=== PATIENT | male | born 1955 | race Caucasian/White ===

== ENCOUNTER 2020-10-11 06:06 | Day surgery (SDC) | payer MEDICARE, BC ==
[2020-10-11] MEDS ORDERED: Midazolam 1 MG/ML 2 ML SDV ONE (06:57)
[2020-10-11] MEDS ORDERED: fentaNYL 100 MCG/2 ML SDV ONE (06:57)
[2020-10-11] MEDS ORDERED: Propofol 200 MG/20 ML SDV ONE (06:57)
[2020-10-11] MEDS ORDERED: Sodium Chloride 0.9% 1,000 ML IV SCH (07:00)
--- NOTE | 2020-10-11 10:41 | PROC ---
DATE OF PROCEDURE: SURGEON: Rusty Rebollar MD INDICATIONS: This is a 65-year-old male, who comes in because of abdominal pain on the right side of the abdomen. The risks and benefits were explained to have a colonoscopy and was taken to the OR. PROCEDURE: Colonoscopy. PROCEDURE IN DETAIL: Anesthesia was given by nurse cylinder checker during procedure, used 2 mg of Versed, 100 mcg of fentanyl, and 200 mg of propofol. The Olympus 180L scope was used, was placed into the rectum and advanced under direct vision. Upon entering the transverse colon, revealed multiple polyps throughout the entire area all the way to the cecum. At cecum, pouch was unremarkable. Came right back again from the cecum noted significant erythema of the mucosa, which was evident up to the mid ascending colon. Biopsies were done of this. Came back into the transverse colon revealed multiple polyps. These were biopsied. The descending colon revealed a lesser amount of polyps. Right inside the rectum revealed what appeared to be a polyp. This was biopsied. The tube was removed. The patient tolerated the procedure well. PREOPERATIVE DIAGNOSIS: Abdominal pain on the right side of the abdomen. POSTOPERATIVE DIAGNOSIS: Multiple polyps throughout the transverse and ascending colon with an area of significant mucosal erythema just proximal to the cecum consistence as colitis. Biopsies were pending, polyps as well as the irritation of the colon area. This gentleman will need frequent colonoscopies depending on the results of the biopsies. Rusty Rebollar MD /[id number] MTDD
== END 2020-10-11 08:49 | disposition home or self-care (01) ==
LOC: JP.SDS 06:06
PROVIDERS: ATTEND Internal Medicine
DX: K63.89 Other specified diseases of intestine (principal); K62.89 Other specified diseases of anus and rectum; I10 Essential (primary) hypertension; E78.5 Hyperlipidemia, unspecified; E66.9 Obesity, unspecified; Z68.38 Body mass index [BMI] 38.0-38.9, adult
CPT/HCPCS: 45380; J2250; J2704; J3010; J7030

== ENCOUNTER 2023-04-09 00:06 | Emergency (ER) | payer MEDICARE, BC ==
[2023-04-09] MEDS ORDERED: Sodium Chloride 0.9% 10 ML Syringe FLUSH PRN (00:48)
[2023-04-09] MEDS ORDERED: Sodium Chloride 0.9% 1,000 ML IV STA (00:48)
[2023-04-09 00:54] LABS: BASOPHILS ABSOLUTE AUTO 0.06 K/uL (0.00-0.10); BASOPHILS PERCENT AUTO 0.5 % (0.1-1.3); EOSINOPHILS ABSOLUTE AUTO 0.75 K/uL (0.00-0.40); EOSINOPHILS PERCENT AUTO 6.6 % (0.0-5.4); HEMATOCRIT 36.4 % (38.4-49.7); HEMOGLOBIN 12.3 g/dL (12.9-16.9); IMMATURE GRAN ABSOLUTE AUTO 0.07 K/uL (0.00-0.23); IMMATURE GRAN PERCENT AUTO 0.6 % (0.0-0.7); LYMPHOCYTES ABSOLUTE AUTO 1.27 K/uL (0.8-3.3); LYMPHOCYTES PERCENT AUTO 11.2 % (11.4-47.7); MEAN CORPUSCULAR HEMOGLOBIN 29.6 pg (31.6-35.5); MEAN CORPUSCULAR HGB CONC 33.8 g/dL (31.6-35.5); MEAN CORPUSCULAR VOLUME 87.7 fL (81.4-99.0); MONOCYTES ABSOLUTE AUTO 0.84 K/uL (0.20-0.90); MONOCYTES PERCENT AUTO 7.4 % (3.3-12.6); NEUTROPHILS ABSOLUTE AUTO 8.39 K/uL (1.0-7.6); NEUTROPHILS PERCENT AUTO 73.7 % (40.0-78.1); PLATELET COUNT,PLT 193 K/uL (130-375); RED BLOOD CELL COUNT 4.15 M/uL (4.14-5.76); WHITE BLOOD CELL COUNT,WBC 11.4 K/uL (3.2-11.0)
[2023-04-09] MEDS ORDERED: Iopamidol 612 MG/ML 100 ML Bottle IV STA (01:00)
[2023-04-09] MEDS ORDERED: Sodium Chloride 0.9% 50 ML IV STA (01:01)
[2023-04-09] MEDS ORDERED: Sodium Chloride 0.9% 10 ML Syringe FLUSH STA (01:01)
[2023-04-09 01:11] LABS: A/G RATIO 0.9 (1.2-2.2); ALANINE AMINOTRANSFERASE,ALT 27 U/L (12-78); ALBUMIN 3.1 g/dL (3.4-5.0); ALKALINE PHOSPHATASE 98 U/L (46-116); ASPARTATE AMNIOTRANSFERASE,AST 16 U/L (15-37); BILIRUBIN TOTAL 0.4 mg/dL (0.2-1.0); BLOOD UREA NITROGEN,BUN 14 mg/dL (7-18); CALCIUM 8.2 mg/dL (8.5-10.1); CARBON DIOXIDE,CO2 26 mmol/L (21-32); CHLORIDE,CL 102 mmol/L (100-108); CREATININE 1.1 mg/dL (0.8-1.3); EST CRCL DRUG DOSING (CG) 72.64 mL/min; ESTIMATED GFR 73 mL/min (>60); GLUCOSE RANDOM 122 mg/dL (74-106); POTASSIUM,K 3.6 mmol/L (3.6-5.2); PROTEIN TOTAL,TP 6.6 g/dL (6.4-8.2); SODIUM,NA 137 mmol/L (140-148)
[2023-04-09 01:24] LABS: ANION GAP 12.6 mmol/L (5.0-14.0)
== END 2023-04-09 03:42 | disposition home or self-care (01) ==
LOC: JP.ED 00:06
DX: K52.9 Noninfective gastroenteritis and colitis, unspecified (principal); I10 Essential (primary) hypertension; E66.9 Obesity, unspecified; Z91.013 Allergy to seafood; Z79.899 Other long term (current) drug therapy; Z68.41 Body mass index [BMI] 40.0-44.9, adult
CPT/HCPCS: 36415; 74177; 80053; 83605; 83690; 85025; 96360; 96361; 99284; J3490; J7030; Q9967